=== PATIENT | female | born 1945 | race Caucasian/White ===

== ENCOUNTER 2022-07-17 18:20 | Emergency (ER) | payer BC, OTHER ==
[2022-07-17 18:51] VITALS: BP 134/72; PULSE 71; RESP 16; TEMP 98.3; BMI 25.3
[2022-07-17] MEDS ORDERED: LIDOCAINE HCL 2% (50ML VIAL) SQ ONE (19:54)
[2022-07-17] MEDS ORDERED: LIDOCAINE HCL 2% (20ML MULTI-DOSE VIAL) ONE (19:58)
== END 2022-07-17 20:57 | disposition home or self-care (01) ==
LOC: FER 18:20
PROC: 0PSTXZZ Reposition Right Finger Phalanx, External Approach (ICD-10-PCS; principal; 2022-07-17)
PROC: 3E023GC Introduction of Other Therapeutic Substance into Muscle, Percutaneous Approach (ICD-10-PCS; 2022-07-17)
DX: S63.265A Dislocation of metacarpophalangeal joint of left ring finger, initial encounter (principal); W22.8XXA Striking against or struck by other objects, initial encounter
CPT/HCPCS: 26770; 73140-TC-LT-FY; 73140-TC-RT-FY; 96372; 99284-25